=== PATIENT | male | born 1980 | race Caucasian/White ===

== ENCOUNTER → 2025-06-05 | Outpatient (CLI) | payer OTHER, MEDICARE, SELFPAY ==
[2025-06-05 20:42] LABS: Troponin I < 0.002 ng/mL (0.0-0.045)
== END | disposition home or self-care (01) ==
LOC: SERX 20:16 → SLDO 06-19 09:28
PROVIDERS: PCP Family Medicine; Referring Provider Family Medicine; Visit Provider Family Medicine
DX: Z01.89 Encounter for other specified special examinations (principal)
CPT/HCPCS: 36415; 84484

== ENCOUNTER 2025-06-17 09:45 | Outpatient (RCR) | payer OTHER, MEDICARE, SELFPAY ==
--- NOTE | 2025-06-17 10:06 | PTNOTE_ITS ---
PT OP Initial Eval Patient Information Outpatient Physical Therapy Treatment Date: 06/17/25 Medical Diagnosis: M25.572 Treatment Dx #1: L ankle pain Treatment Dx #2: L ankle weakness Start of Care: 06/17/25 Date of Onset: 12/29/24 and 01/10/25 DOS Smoking Status Smoking Status: Current every day smoker Cessation Counseling Provided: SHELBI was advised that quitting smoking is the single most important factor to protect the health of themselves and their family. Discussed the benefits of quitting smoking with patient. Encouraged patient to quit smoking and provided Cessation assistance materials and resources. Tobacco Use: Cigarette Years smoked: 41 Are you interested in quitting?: No Would you like additional Smoking Cessation Counseling?: No Initial Assessment Subjective: Pt is 45 yr old male s/p L ankle trimalleolar FX with ORIF reports L ankle pain when he walks up and downhill and balances on it. He walks slow without assistive device and is worried about breaking it again. Pt comes from [facility] with 3 officers. PLOF: prior to FX pt was independent with functional mobility community distances PMH: HTN, DM, allergies, high cholesterol, morbid obesity Pt goal: to make it stronger and better to walk uphill and downhill faster Objective: L ankle AROM: DF: 3 deg PF: 35 deg Inversion: 10 deg Eversion: 6 deg Heel raise: 40% of full height with B Gait: lateral sway, symmetrical pattern, limited push off in terminal stance Assessment: Pt presentation consistent with referring Dx of L ankle trimalleolar FX with ORIF. Pt has decreased AROM and strength of the ankle with heel raising and WB tolerance. Pt requires skilled therapy and has fair rehab potential to meet goals. Short Term and Intermediate Goals 1. Ind with HEP 2. Improved L ankle AROM into DF to 8 deg and PF to 45 deg 3. Pt will heel raise to full height x10 4. Pt will ambulate with symmetrical gait pattern with Treatment Plan ? 1. Manual therapy ? 2. Therex ? 3. Modalities as indicated, moist heat, ice, estim Frequency and Duration: 1-2x a week for 12 visits plus the evaluation Certification Dates: 06/17/25 to 09/15/25 Procedure Charges OP PT Eval Mod Complex 30 minutes: Yes
== END 2025-07-05 23:59 | disposition home or self-care (01) ==
LOC: CPTX 09:45
PROVIDERS: PCP Family Medicine; Referring Provider Family Medicine; Visit Provider Family Medicine
DX: M25.572 Pain in left ankle and joints of left foot (principal); R53.1 Weakness; S82.852D Displaced trimalleolar fracture of left lower leg, subsequent encounter for closed fracture with routine healing; X58.XXXD Exposure to other specified factors, subsequent encounter; Z71.6 Tobacco abuse counseling; F17.210 Nicotine dependence, cigarettes, uncomplicated; I10 Essential (primary) hypertension; E11.9 Type 2 diabetes mellitus without complications
CPT/HCPCS: 97162

== ENCOUNTER 2025-07-06 08:54 | Outpatient (RCR) | payer OTHER, MEDICARE, MEDICAID, SELFPAY ==
--- NOTE | 2025-07-06 10:19 | CTCCONSULT_ITS ---
Patient: SHELBI BARNES : 1980 MR#: [id number] Page 4 of 5 CONSULTATION NOTE DATE OF CONSULTATION: 07/06/2025 NAME: SHELBI BARNES ACCOUNT: [id number] : 1980 AGE: 45 REFERRING PHYSICIAN: Kelvin Luu MD PRIMARY PHYSICIAN: Kelvin Luu MD REASON FOR VISIT: Reestablishing care for possible metastatic melanoma ONCOLOGY HISTORY: DIAGNOSIS: Metastatic melanoma DATE OF DIAGNOSIS: 2016 STAGE/TNM: Stage IV TREATMENT HISTORY: Care?Plan Start?Date Cycle Day Intent HISTORY OF PRESENT ILLNESS: 45-year-old male CT chest with contrast: multiple bilatetal lung masses present including lobuler mess within the peripheral aspect ol the left lower [id number] x 3.3 cm, left measures 2.2 x 2.9 cm. linguist segment and loss 2.1 x 1.4 cm. right nodules 9 mm -8iopsy done 12/08/2016: oPATHOLOGY: malimant melanoma ,BRAF; NEGATIVE. PD-L:1% -PET CT mn done 6(; intensely hypermetaboiic lelt lung mass consistent with malignant melanoma 5.4 cm, SUV 24. small bbas?ar nodules 1.3 cm SUV to 3, no other rrletastatic disease -MRi of the brain with and without contrast; no evidence ol metastatic lungdisease. no acute intracraniel abnormality Started on treatment PEMBRQIZUMAB , last inpction on August 302017; so far tolerating well no compilation of pneumonitis or any other complications -Chest-x-ray showed sligtt improvement 01 predominantly left pulmonary nodule. iett rib frames possibly pathologic Chest x-ray done 2 views:10/15/2017: stable Aguila in the posterior lateral aspect of ten mid lung. Stable heating left rib fractures patient obviously is, right Img remains clear [id number] complete metabolic panel normal. CBC W80 7 hemodobln 14. platelets 300 TSH normal. 'Patient is receiving systemic treatment KEYTRUDA; restarted [id number] so far received 11 doses until [id number] -l.abs done before each doses normal LFTs bi?nbin kidney functions labs including CBC with differential -No complications induding pneumoni?s colit's skin problems diarrhea PETICT scan whole body [id number]; compared with the PETscen from 01/[id number] Posterior hterat left lung superior lower lobe hypermetabolic mass on PET scan has signi?cantly decreased in size and intensity. residual sott tissue lesion 2 x 1.8 x 1.2 cm i currently only irregularly mildly metabolic activc. -There is a new discretely focal thermally intensely hypermetabolic activiy involving the midllne transverse colon not clearly dELINATED soft tissue on noncontrest CT but roughly 1.6 x 1.5 because of lowly abnormally discrete intendty ?nding of concern tor malignancy consider oolonoscopy correlation Re stated met?cationKEYTRUDA; ?11/2018 so far received 3 doses -Toteratlng well with no side effects so tar, labs multiple done normal [id number] wec 11.9 hemoglobin 15.6 platelets 319 SUN 13 creatlnine 1 calcium 9.8 alburnln 4.7 total protein 7.5 aik phos 74 AST 16 ALT 70 total bill 0.5 last TSH 9: 1.36. was Complaining of headaches on and elf. severe. no weakness. no nausea vomiting. no weakness $[id number]: W80 7.3 hemoglobin 15.1 platelets 313 creatinlne 1.11. calcium 10.3. total bill 0.9. TSH 1.09 01/09/2019: MRI brain with and without contrast showed unremarkable MRl ot the brain. W019 PETICT scan whole body: -The posterior left lung superior lower lobe lesion followed on prior scans remain mom stable rougtiy 1.9 x 1.6 x 1.7 cm. again with the only irregularly mildly metabolic actlv -The mid transverse colon local hypermetabolic abnormality seen on prior CT scan remains without a de?nite corresponding abnonnaiity on CT. Has decreased h intensit] and size extent consider colonoscoplc correlation Anterior lateral pk abdominal superficial dental locally mildly increased metabolic activity 0.8 cm x 0.2 cm is nonspec?c an be inflammatory but should be assessable to physical exam correlation -There is no otherwbe de?nite hypermetaboic abnormality elsewhere to suggest a pattern of primary or metastatic typical active melanoma. Persistence oi bilateral neck hypermetaboiic activity corresponc?ng with regions at tat is again prestrnably physiological, irregular activity can prevent optimal metabolic evaluation adjacent lymph nodes whenever driving the carbide you guys do not call that timePatient received dose #9 oi Keytruda W Protocol Treatment Keytruda 200 mg IV q3 weeks x12 dosee Today is dose 9 of 12. Alter that patient was released from [facility]: did not see any oncologist or follow-up for 2-year Now back in detail again; seen by telemedicine Complaining ol severe dysphagla not able to hold any load In the stomach. causing severe nausea vomiting, continues losing weight. severe fatigue. discomfort Since we met patient underwent endoscopy CT scans PROCEDURE ?NDlNGS: Upper endoscopy 09/16/2020 Normal appearing duodenal vane and second portion of duodenum. Normal antrum and pylorus. No gastric ulcers or erosions noted. Retrotlexlon with normal angularis. oardla. and fundus. Very small Jessica hemla. Normal gastric lolds and peristalsis. Esophagus with well-demareewd z-line at 36cm. No esophagitis. esophageal stricture or mass noted. ([id number] 19:17 PST 01' Head or Brain wl 0- wlo Contrast) nhsncernent. The perenesel sinuses are clear. Hidalgo mastoid surgery. lMPRESSlON: Unremerlrable CT of the head with no evidence oi metastatic disease. [1] [210 2020 19:31 981' CT ChestIAbdomenlPelvls w! Contrast) IMPRESSION: l. 2.7 cm srbpleurd mass in the left lower lobe 5 mm Indeterminate nodule In the right lomr lobe. A 4 mm perilissurai nodule at the anterior right middle lobe is most with a benign intrapulmonary lymph node. Unnemarkable CT of the abdomen and pelvis March 2022 multiple bilateral carotid triangle lymph nodes 11 mm on the right side left 15 mm on the left side submandibular lymph node largest on the right side 9 mm and 8 mm on the left side OTHER MEDICAL HISTORY/CONDITIONS: hypertension allergies asthma cancer diabetes prostate condition siezures ulcers smoker substance abuse mental disorder port?insert-2007 last?use?of?port?2019 FAMILY HISTORY: Patient?denies?family?cancer?history. SOCIAL HISTORY: Education?Level:?Completed 10th grade Marital?Status:?Single Tobacco?Pack?per?Day:?10 Tobacco?Use?Years:?25 Drug?Note:?methamphetamine MEDICATIONS: 1. albuterol - 90 mcg/actuation 2 Puff(s) Every 4 Hours 2. Alu-Mag Plus - 200-200-25 mg 1 tab Every 6 Hours 3. atorvastatin - 10 mg 1 tab Daily 4. benztropine - 0.5 mg 1 tab Daily 5. buspirone - 20 mg Three times a day 6. clotrimazole - 1 % As directed 7. Depakote - 8. diazePAM - 20 mg/2 spray (10mg/0.1mL x2) As needed 9. diphenhydrAMINE HCl - 25 mg 1 tab Daily 10. EPINEPHrine - 0.15 mg/0.15 mL As directed 11. fluticasone propion-salmeteroL - 100-50 mcg/dose As directed 12. gabapentin - 900 mg 1 tab Three times a day 13. hydrocortisone - 1 % As directed 14. hydrOXYzine pamoate - 25 mg 1 Capsule Daily 15. ibuprofen - 600 mg 1 tab As directed 16. levalbuterol tartrate - 45 mcg/actuation 17. lisinopril - 10 mg 1 tab Daily 18. metFORMIN - 850 mg 1 tab Daily 19. mirtazapine - 30 mg 1 tab Every day before sleep 20. OLANZapine - 10 mg 1 tab Twice a Day 21. paliperidone - 9 mg 1 tab Daily 22. paliperidone palmitate - 234 mg/1.5 mL Every 1 Months 23. pantoprazole - 40 mg 1 Daily 24. Pepto-BismoL - 524 mg/30mL As directed 25. prazosin-polythiazide - 2-0.5 mg 1 Capsule Twice a Day 26. tamsulosin - 0.4 mg 1 Capsule Daily?Palabra Meds? Medications Last Reconciled by Shabana Umana MD on 07/06/2025 ALLERGIES: Penicillins; honeydew; bee stings; berries REVIEW OF SYSTEMS: A complete 14-point review of systems was performed and is negative except as noted in interval history. PHYSICAL EXAMINATION: VITAL SIGNS: Temperature?97.8, B/P?120/80, Height?69?inches, Oxygen?Saturation?95% Weight?314?lbs PAIN: 6 - Severe pain GENERAL APPEARANCE: Appears well, in no apparent distress, appropriately interactive. HEENT: Normocephalic, no temporal wasting, normal conjunctiva, no scleral icterus, normal hearing, lips without lesions, neck normal range of motion. CARDIOVASCULAR: Not assessed. PULMONARY: Normal respiratory effort, no respiratory distress or use of accessory muscles, speaking in full sentences, no tachypnea. EXTREMITIES: No pedal edema or cyanosis. SKIN: Normal skin appearance. NEUROLOGIC: Alert and oriented x4. PSHYCHIATRIC: Appropriate affect, mood normal, behavior normal, intact thought and speech. LABORATORY DATA: I have personally reviewed and interpreted each of the patient?s relevant lab tests, abnormal findings are below: Date ASSESSMENT/PLAN: Metastatic melanoma Patient had diagnosis of melanoma in the lung Primary unknown Multiple lymph nodes were noted in 2021 but patient lost to follow-up here No other treatment since he received his immunotherapy Will do PET CT scan and MRI brain to restage patient Patient already have port catheter in RTC in 4 weeks to review the imaging and to plan treatment ORDERS: Order # Description [id number] Comprehensive Metabolic Panel - 12 + CBC with Auto Diff [id number] PET/CT of Skull to mid-thigh for Restaging [id number] Thyroid Stimulating Hormone + Assay Triiodothyronine (T3) [id number] MRI + Brain + With Contrast RETURN TO CLINIC: I reviewed the diagnosis, prognosis, and recommended treatment/procedure options with the patient (and/or their legal field service representative), including the potential benefits, risks, side effects and alternative therapies. We also discussed the option of no treatment and the possibility of clinical trial participation, if applicable. All questions were addressed, and they demonstrated understanding. They provided informed consent to proceed with the proposed plan of care. BILLING AND COMPLIANCE: I reviewed external records from providers outside my specialty as summarized above. I spent a total of 50 minutes on this patient?s care on the day of their visit excluding time spent related to any billed procedures. This time includes time spent with the patient as well as time spent documenting in the medical record, reviewing patients records and tests, obtaining history, placing orders, communicating with other healthcare professionals, counseling the patient, family or caregiver, and/or care coordination for the diagnoses above. Electronically Signed by: Niraj Luke MD T: 10:16 AM CC: PCP: Kelvin Luu Referring: Kelvin Luu This document was completed utilizing speech recognition software. Grammatical errors, random word insertions, pronoun errors, and incomplete sentences are an occasional consequence of this system due to software limitations, ambient noise, and hardware issues. Any formal questions or concerns about the content, text or information contained within the body of this dictation should be directly addressed to the provider for clarification.
== END 2025-08-05 23:59 | disposition home or self-care (01) ==
LOC: SCTC 08:54
PROVIDERS: PCP Family Medicine; Referring Provider Family Medicine; Visit Provider Internal Medicine Hematology & Oncology
DX: C78.00 Secondary malignant neoplasm of unspecified lung (principal); C43.9 Malignant melanoma of skin, unspecified
CPT/HCPCS: 99213; G0463

== ENCOUNTER 2025-07-15 10:00 | Outpatient (RCR) | payer OTHER, MEDICARE, SELFPAY ==
--- NOTE | 2025-07-07 17:58 | PT.ODAYNRPT ---
PT Outpatient Daily Note OP Daily Note Outpatient Physical Therapy Treatment Date: 07/07/25 Subjective: Same as time of evaluation Objective: See f/S for therex Assessment: Low tissue irritability of L ankle with lunging and heel raises Plan: Continue per POC Length of Time (minutes) of Treatment: 30 Minutes Procedure Charges Therapeutic Exercise 30 minutes: Yes
--- NOTE | 2025-07-15 10:41 | PT.ODAYNRPT ---
PT Outpatient Daily Note OP Daily Note Outpatient Physical Therapy Treatment Date: 07/15/25 Visit Reasons: BILATERAL KNEE PAIN Subjective: Low pain in the L ankle. Doing HEP with low to no ankle pain Objective: See f/S for therex Assessment: Low tissue irritability of L ankle with lunging and heel raises. Pt was able to do more reps of all therex today. Plan: Continue per POC Length of Time (minutes) of Treatment: 30 Minutes Procedure Charges Therapeutic Exercise 30 minutes: Yes
== END 2025-08-05 23:59 | disposition home or self-care (01) ==
LOC: CPTX 10:00
PROVIDERS: PCP Family Medicine; Referring Provider Family Medicine; Visit Provider Family Medicine
DX: M25.572 Pain in left ankle and joints of left foot (principal); R53.1 Weakness; S82.852D Displaced trimalleolar fracture of left lower leg, subsequent encounter for closed fracture with routine healing; X58.XXXD Exposure to other specified factors, subsequent encounter; F17.210 Nicotine dependence, cigarettes, uncomplicated; Z71.6 Tobacco abuse counseling; I10 Essential (primary) hypertension; E11.9 Type 2 diabetes mellitus without complications
CPT/HCPCS: 97110